=== PATIENT | female | born 1960 | race Caucasian/White ===

== ENCOUNTER 2018-02-16 00:02 | Emergency (ER) | payer BC ==
[2018-02-16] MEDS ORDERED: Sodium Chloride 0.9% 1,000 ML IV STA (00:19)
[2018-02-16 00:33] LABS: BASO % 0.3 % (0.0-2.0); EOS # 0.2 K/uL (0.0-0.7); EOS % 1.6 % (0.0-4.0); HEMOGLOBIN 13.1 g/dL (11.0-16.0); LYMPH % 23.6 % (20.0-40.0); MEAN CELL VOLUME 84.6 fL (81.0-99.0); MEAN CORPUSCULAR HEMOGLOBIN 28.6 pg (27.0-31.0); MEAN CORPUSCULAR HGB CONC 33.8 g/dL (33.0-37.0); MEAN PLATELET VOLUME 7.4 fL (7.2-11.7); MONO # 0.5 K/uL (0.0-0.8); MONO % 3.9 % (0.0-10.0); NEUT # 9.1 K/uL (1.8-7.0); NEUT % 70.6 % (50.0-75.0); RBC 4.59 Mil/uL (3.80-5.20); RED CELL DISTRIBUTION WIDTH 14.2 % (11.5-14.5); WHITE BLOOD COUNT 12.9 K/uL (4.8-10.8)
[2018-02-16 00:42] LABS: PROTHROMBIN TIME 11.4 SECONDS (9.7-12.2)
[2018-02-16 00:46] LABS: URINE BACTERIA RARE (<OCC); URINE BILIRUBIN NEGATIVE (NEGATIVE); URINE BLOOD NEGATIVE (NEGATIVE); URINE CLARITY Clear (Clear); URINE COLOR Straw (YELLOW); URINE GLUCOSE (UA) NORMAL (Normal); URINE LEUKOCYTE ESTERASE TRACE Leu/uL (Negative); URINE PROTEIN NEGATIVE (NEGATIVE); URINE UROBILINOGEN NORMAL mg/dL (0.2-1.0)
[2018-02-16 00:55] LABS: BARBITURATES, UR NEGATIVE (NEGATIVE); BENZODIAZEPINES, UR NEGATIVE (NEGATIVE); OPIATES, UR NEGATIVE (NEGATIVE); PHENCYCLIDINE, UR NEGATIVE (NEGATIVE)
[2018-02-16 00:56] LABS: ALB/GLOB RATIO 1.3 (1.0-2.1); ALBUMIN 4.1 g/dL (3.5-5.0); ALT/SGPT 25 U/L (9-52); AST/SGOT 30 U/L (14-36); BLOOD UREA NITROGEN 8 mg/dL (7-17); CALCIUM 8.9 mg/dl (8.6-10.4); GFR AFRICAN-AMERICAN > 60; GFR NON-AFRICAN AMERICAN > 60
--- NOTE | 2018-02-16 01:51 | CT ---
EXAM: CT Head Without Intravenous Contrast CLINICAL HISTORY: 57 years old, female; Pain; Other: Cardiach arrest; Additional info: AMS. Cardiac arrest. Study redo , pt. Was moving and not apple to be medicated TECHNIQUE: Axial computed tomography images of the head/brain without intravenous contrast. All CT scans at this facility use one or more dose reduction techniques, viz.: automated exposure control; ma/kV adjustment per patient size (including targeted exams where dose is matched to indication; i.e. head); or iterative reconstruction technique. Coronal and sagittal reformatted images were created and reviewed. COMPARISON: No relevant prior studies available. FINDINGS: Artifacts: Motion artifact does moderately limit the sensitivity of this examination. Brain: The cerebral sulci appear tight. There is loss of the telles and white matter differentiation. Hypodensity in the right inferior basal ganglia secondary to chronic lacunar infarct or prominent perivascular space. No hemorrhage. Ventricles: Unremarkable. No ventriculomegaly. Bones/joints: Unremarkable. No acute fracture. Soft tissues: Unremarkable. Sinuses: There is diffuse mucoperiosteal thickening in the maxillary and ethmoid sinuses, consistent with chronic sinusitis. Mastoid air cells: Unremarkable as visualized. No mastoid effusion. IMPRESSION: Limited by motion. No gross intracranial hemorrhage. Above findings raise suspicion for cerebral edema. Chronic sinusitis. Right inferior basal ganglia chronic lacunar infarct versus prominent perivascular space.
--- NOTE | 2018-02-16 03:52 | C.PDOC ---
History Of Present Illness Pt was BIBEMS after being found on the floor in her house by her unresponsive. states that he found empty bottles of alcohol next to her. Time Seen by Provider: 02/16/18 00:13 Chief Complaint (Nursing): Altered Mental Status History Per: Patient, EMS History/Exam Limitations: Clinical Condition, Intoxication Onset Of Symptoms: Cannot Confirm Onset Current Symptoms Are (Timing): Still Present Usual Baseline: Alert Oriented, Ambulatory Exacerbating Factor(s): Unknown, Alcohol Use Severity: Severe Additional History Per: Prior Records Past Medical History Reviewed: Historical Data, Nursing Documentation, Vital Signs Vital Signs: Last Vital Signs Temp 98.4 F 02/16/18 00:13 Pulse 66 02/16/18 06:29 Resp 12 02/16/18 06:29 BP 103/69 02/16/18 06:29 Pulse Ox 97 02/16/18 06:29 - Medical History PMH: Asthma, Gall Bladder Disease Family History: States: Unknown Family Hx - Social History Hx Alcohol Use: Yes Hx Substance Use: No - Immunization History Hx Tetanus Toxoid Vaccination: No Hx Influenza Vaccination: No Hx Pneumococcal Vaccination: No Review Of Systems Review Of Systems: ROS cannot be obtained secondary to pt's inabilty to answer questions. Physical Exam - Physical Exam Appears: In Acute Distress, Other (Unresponsive, but breathing spontaneously and moving her extremities) Skin: Normal Color, Warm, Dry Head: Atraumatic Eye(s): bilateral: PERRL, EOMI Neck: Normal ROM, No Midline Cervical Tenderness, No Step Off Deformity, Supple Cardiovascular: Rhythm Regular Respiratory: Normal Breath Sounds, No Accessory Muscle Use Gastrointestinal/Abdominal: Soft Extremity: Normal ROM, No Deformity Neurological/Psych: No Response To Commands Pain Response: No Response To Pain Gait: Unable To Assess ED Course And Treatment - Laboratory Results Result Diagrams: 02/16/18 00:30 02/16/18 00:30 Interpretation Of Abnormal: Elevated alcohol level ECG: Interpreted By Me, Viewed By Me ECG Rhythm: Sinus Bradycardia, Nonspecific Changes Rate From EC O2 Sat by Pulse Oximetry: 100 Pulse Ox Interpretation: Normal - Radiology CXR: Interpreted by Me, Viewed By Me CXR Interpretation: Yes: No Acute Disease - CT Scan/US CT head Other Rad Studies (CT/US): Read By Radiologist, Radiology Report Reviewed CT/US Interpretation: CT Scan. . . HEAD W/O CONTRAST Exam Date: 02/16/18. . This imaging exam was performed at [facility]. ADDENDUM. . Addendum created by Elo Loera MD on 2:01:03 AM EDT. . The findings were verbally communicaated via telephone conference with. Michelle Santana at 1:57 AM EDT on 02/16/2018. The findings were acknowledged and. understood. . Additional history was provided by the physician. The patient is awake and. alert, therefore, based on clinical presentation is unlikely to have cerebral. edema. The findings described are likely related to motion artifact. . Initial report created on 1:51:15 AM EDT. . EXAM: CT Head Without Intravenous Contrast. . CLINICAL HISTORY: 57 years old, female; Pain; Other: Cardiach arrest; Additional info: AMS. Cardiac arrest. Study redo , pt. Was moving and not apple to be medicated. . TECHNIQUE: Axial computed tomography images of the head/brain without intravenous. contrast. All CT scans at this facility use one or more dose reduction. techniques, viz.: automated exposure control; ma/ kV adjustment per patient size. (including targeted exams where dose is matched to indication; i.e. head); or. iterative reconstruction technique. Coronal and sagittal reformatted images were created and reviewed. . COMPARISON: No relevant prior studies available. . FINDINGS: Artifacts: Motion artifact does moderately limit the sensitivity of this. examination. Brain: The cerebral sulci appear tight. There is loss of the telles and white. matter differentiation. Hypodensity in the right inferior basal ganglia. secondary to chronic lacunar infarct or prominent perivascular space. No. hemorrhage. Ventricles: Unremarkable. No ventriculomegaly. Bones/joints: Unremarkable. No acute fracture. Soft tissues: Unremarkable. Sinuses: There is diffuse mucoperiosteal thickening in the maxillary and. ethmoid sinuses, consistent with chronic sinusitis. Mastoid air cells: Unremarkable as visualized. No mastoid effusion. . IMPRESSION: Limited by motion. No gross intracranial hemorrhage. Above findings raise suspicion for cerebral edema. . Chronic sinusitis. . Right inferior basal ganglia chronic lacunar infarct versus prominent. perivascular space. . Addendum Dictated By: Elo Urrutia MD. Addendum Dictated Date Time:02/16/18. Addendum Signed by:Elo Loera MD. Addendum signed Date Time: 02/16/18200. Addendum Transcribed By: [facility]. Addendum Transcribed Date Time: 02/16/18200. . KEON/ . EXAM: CT Head Without Intravenous Contrast. . CLINICAL HISTORY: 57 years old, female; Pain; Other: Cardiach arrest; Additional info: AMS. Cardiac arrest. Study redo , pt. Was moving and not apple to be medicated. . TECHNIQUE: Axial computed tomography images of the head/brain without intravenous. contrast. All CT scans at this facility use one or more dose reduction. techniques, viz.: automated exposure control; ma/ kV adjustment per patient size. (including targeted exams where dose is matched to indication; i.e. head); or. iterative reconstruction technique. Coronal and sagittal reformatted images were created and reviewed. . COMPARISON: No relevant prior studies available. . FINDINGS: Artifacts: Motion artifact does moderately limit the sensitivity of this. examination. Brain: The cerebral sulci appear tight. There is loss of the telles and white. matter differentiation. Hypodensity in the right inferior basal ganglia. secondary to chronic lacunar infarct or prominent perivascular space. No. hemorrhage. Ventricles: Unremarkable. No ventriculomegaly. Bones/joints: Unremarkable. No acute fracture. Soft tissues: Unremarkable. Sinuses: There is diffuse mucoperiosteal thickening in the maxillary and. ethmoid sinuses, consistent with chronic sinusitis. Mastoid air cells: Unremarkable as visualized. No mastoid effusion. . IMPRESSION: Limited by motion. No gross intracranial hemorrhage. Above findings raise suspicion for cerebral edema. . Chronic sinusitis. . Right inferior basal ganglia chronic lacunar infarct versus prominent. perivascular space. Progress Note: Upon ED arrival, pt gradualy woke up and became more alert. However when pt woke up she started crying and stating that she wants to . Pt then became agitated and was given 1mg of Ativan as an anxioulytic. After ativan pt is sleeping. ED EKG Interpretation - Interpreted by ED Physician Interpreted by ED Physician: Yes - Type Type: 12 lead EKG - Rhythm Rhythm: Sinus bradycardia - Rate BPM: 56 - Conduction Conduction: Normal conduction - Impression Impression:: Non-specific Progress - Interventions Interventions:: Observation, Intravenous fluid, Oxygen - Data Reviewed Data Reviewed: Lab, Diagnostic imaging, EKG, Old records - Patient Status Patient status: Partially improved - Critical Care Citical Care: Excluding Proc Time Critical Care Time: 60 minutes - Continuity of Care Discussed patient case with:: Patient, Family-HIPPA compliant, ED Nurse Disposition - Disposition Disposition Time: 06:56 Condition: IMPROVED - Clinical Impression Clinical Impression: Alcohol intoxication, Evaluation by psychiatric service required Physician Patient Turnover Patient Signed Over To: Shira Felix Handoff Comments: pending psychiatric evaluation.
[2018-02-16 08:12] VITALS: RESP 16; O2SAT 99
[2018-02-16 09:33] VITALS: BP 119/72; PULSE 72; TEMP 98.2
--- NOTE | 2018-02-16 15:28 | RAD ---
PROCEDURE: CHEST RADIOGRAPH, 1 VIEW HISTORY: AMS COMPARISON: None available. FINDINGS: LUNGS: Clear. PLEURA: No pneumothorax or pleural fluid seen. CARDIOVASCULAR: Normal. OSSEOUS STRUCTURES: No significant abnormalities. VISUALIZED UPPER ABDOMEN: Normal. OTHER FINDINGS: None. IMPRESSION: No active disease.
== END 2018-02-16 10:14 | disposition home or self-care (01) ==
LOC: C.ER 00:02
DX: Z00.8 Encounter for other general examination (principal); F10.129 Alcohol abuse with intoxication, unspecified; Y90.8 Blood alcohol level of 240 mg/100 ml or more
CPT/HCPCS: 70450; 71045; 80053; 81001; 82948; 83735; 83930; 84484; 85025; 85610; 85730; 96361; 96374; 99285; G0480; J2060; J7040